=== PATIENT | male | born 1985 | race Caucasian/White ===

== ENCOUNTER 2016-05-30 18:33 | Emergency (ER) | payer BC ==
[2016-05-30] MEDS ORDERED: LORAZEPAM 1 MG TABLET ONE (19:05)
[2016-05-30] MEDS ORDERED: LORAZEPAM 1 MG TABLET PO ONE (19:30)
== END 2016-05-30 19:07 | disposition home or self-care (01) ==
DX: B35.4 Tinea corporis (principal); F32.9 Major depressive disorder, single episode, unspecified; F41.9 Anxiety disorder, unspecified
CPT/HCPCS: 99283; A4606; Z7610

== ENCOUNTER 2018-07-22 05:22 | Emergency (ER) | payer BC, MEDICAID ==
[~2018-07-22] VITALS: Ht 175.3 cm; Wt 72.6 kg
[2018-07-22 05:47] VITALS: BP 148/89
== END 2018-07-22 06:33 | disposition home or self-care (01) ==
LOC: ER 05:22
DX: F41.9 Anxiety disorder, unspecified (principal); F19.10 Other psychoactive substance abuse, uncomplicated; F32.9 Major depressive disorder, single episode, unspecified; F10.10 Alcohol abuse, uncomplicated; F14.90 Cocaine use, unspecified, uncomplicated; Y90.9 Presence of alcohol in blood, level not specified

== ENCOUNTER 2018-10-13 13:52 | Emergency (ER) | payer MEDICAID ==
[~2018-10-13] VITALS: Ht 172.7 cm; Wt 67.6 kg
--- NOTE | 2018-10-13 14:20 | NUR ---
PT PRESENTED TO THE ER WITH A C/O SI WITH A PLAN TO HANG HIMSELF. PT IS AA7O X4. PT IS EMOTIONAL AND STATED THAT IF HE DOES NOT GET HELP TODAY THAT'S IT, HE'S DONE. PT WAS IN [facility] A WEEK AGO AND STATED THAT HE WOULD LIKE TO GO TO REHAB AFTER HE IS ADMITTED FOR SI. PT CHANGED INTO A GOWN AND ALL BELONGINGS WERE REMOVED AND PLACED IN THE NURSE'S STATION. ALL BAGS WERE LABELED WITH THE PT'S LABEL. PT DID NOT WANT HIS WALLET PUT INTO THE SAFE. WALLET WAS PLACED IN A SEALED BAG AND PLACED INSIDE BELONGING BAG. PA IS AT THE BEDSIDE SPEAKING TO THE PT.
--- NOTE | 2018-10-13 14:21 | NUR ---
SECURITY IS ARRIVED AND PT WAS WANDED.
--- NOTE | 2018-10-13 14:27 | NUR ---
JACOB SUP. CALLED FOR SITTER.
--- NOTE | 2018-10-13 14:28 | NUR ---
SECURITY IS WITH THE PT IN ROOM 18 A SITTER.
[2018-10-13 15:03] LABS: BASOPHILS % (AUTO) 0.2 % (0.0-2.0); EOSINOPHILS % (AUTO) 1.9 % (0.0-6.0); HEMATOCRIT 37 % (39-51); HEMOGLOBIN 12.5 g/dL (13.5-17.5); LYMPHOCYTES % (AUTO) 14.6 % (20.0-44.0); MEAN CORPUSCULAR HGB CONC 34 g/dl (31.0-36.0); MEAN CORPUSCULAR VOLUME 91 fL (80-96); MONOCYTES # (AUTO) 0.4 /CMM (0.1-1.30); MONOCYTES % (AUTO) 6.1 % (2.0-12.0); NEUTROPHILS # (AUTO) 5.3 /CMM (1.8-8.9); NEUTROPHILS % (AUTO) 77.2 % (43.0-81.0); PLATELET COUNT (AUTO) 282 /CMM (150-450); RED BLOOD CELL COUNT(AUTO) 4.03 MIL/uL (4.5-6.0); WHITE BLOOD COUNT (AUTO) 6.9 K/uL (4.3-11.0)
[2018-10-13 15:08] LABS: CALCIUM, SERUM 8.6 mg/dL (8.5-10.1); CREATININE 1.3 mg/dL (0.6-1.3); POTASSIUM 3.9 mmol/L (3.5-5.1)
[2018-10-13 15:14] LABS: ALBUMIN 3.5 g/dL (3.4-5.0); BILIRUBIN,DIRECT 0.1 mg/dL (0.0-0.2); BILIRUBIN,TOTAL 0.5 mg/dL (0.2-1.0); SALICYLATE 3.7 mg/dL (2.8-20.0); TOTAL PROTEIN, SERUM 6.9 g/dL (6.4-8.2)
[2018-10-13 15:26] LABS: APPEARANCE,URINE Clear (CLEAR); BILIRUBIN,URINE Negative (NEGATIVE); BLOOD, URINE Negative Ery/uL (NEGATIVE); COLOR,URINE Yellow (YELLOW); KETONES,URINE Trace (NEGATIVE); LEUKOCYTE ESTERASE ,URINE Negative (NEGATIVE); NITRITE, URINE Negative (NEGATIVE); PROTEIN,URINE Negative (NEGATIVE); UGLUCOSE Negative (NEGATIVE); UROBILINOGEN,URINE 0.2 EU/dL (0.2)
[2018-10-13 15:30] LABS: BACTERIA,URINE None seen /HPF (None Seen); RBC,URINE 0-2 /HPF (0-2); SQUAMOUS EPITHELIAL CELL,UR Few /HPF (None Seen); WBC,URINE 0-2 /HPF (0-3)
--- NOTE | 2018-10-13 15:30 | NUR ---
PT REC'D A WARM BLANKET.
--- NOTE | 2018-10-13 15:45 | NUR ---
PT REC'D A FOOD TRAY.
--- NOTE | 2018-10-13 16:18 | NUR ---
SITTER ARRIVED AND SECURITY LEFT.
--- NOTE | 2018-10-13 16:31 | NUR ---
PER ART, CALL PINKY AT 5PM
[2018-10-13 16:39] VITALS: BP 116/67
--- NOTE | 2018-10-13 16:47 | NUR ---
PT WAS MOVED FROM ER 18 TO ER 14. PT AMBULATED WITH A SLIGHT LIMP. SITTER IS AT THE BEDSIDE.
--- NOTE | 2018-10-13 17:05 | NUR ---
CALLED YAMIL BAEZ, RE: PT EVAL. REPEAT ALCOHOL LEVEL ORDERED.
--- NOTE | 2018-10-13 18:17 | NUR ---
YAMIL CASTREJON, IS ARRIVED AND IS REVIEWING THE PT'S CHART.
--- NOTE | 2018-10-13 18:24 | NUR ---
YAMIL CASTREJON IS AT THE BEDSIDE.
--- NOTE | 2018-10-13 19:00 | NUR ---
JUVENTINO MONTALVO ARRIVED AND WILL BE THE NEW SITTER FOR THE PT.
--- NOTE | 2018-10-13 19:30 | NUR ---
PT REC'D A SANDWICH, JELLO, PUDDING, YOGURT, AND JUICE. PT WILL EAT LATER. PT WANTS TO SLEEP NOW.
--- NOTE | 2018-10-13 20:24 | NUR ---
TRANSFER INFO: [facility]ENNEY SOLORZANO UNIT 2,PATRICK JAIMES ACCEPTED, RN FOR REPORT [phone] [phone]
--- NOTE | 2018-10-13 21:56 | NUR ---
CALLING REPORT TO KENNEY BOB.
--- NOTE | 2018-10-13 22:15 | NUR ---
REPORT GIVEN TO TAMIE EMT. COPY OF THE ENTIRE CHART GIVEN TO EMT. PT'S BELONGINGS WERE GIVEN TO EMT. PT IS BEING TRASFERED OUT TO [facility]. VSS
== END 2018-10-13 22:40 ==
LOC: ER 13:52
DX: R45.851 Suicidal ideations (principal); F17.200 Nicotine dependence, unspecified, uncomplicated; Z98.890 Other specified postprocedural states
CPT/HCPCS: 36415; 80048-TC; 80076-TC; 80305; 81000-TC; 85025-TC; G0480

== ENCOUNTER 2020-05-16 07:40 | Emergency (ER) | payer MEDICAID ==
[~2020-05-16] VITALS: Ht 175.3 cm; Wt 72.6 kg
--- NOTE | 2020-05-16 07:40 | NUR ---
PT BIB SELF C/O SI "I WANT TO HANG MY SELF" PT IS AAOX4, NOT IN RESPIRATORY DISTRESS, V/S STABLE, KEPT RESTED AND COMFORTABLE. SITTER AT BEDSIDE.
--- NOTE | 2020-05-16 07:50 | NUR ---
URINE SPECIMEN COLLECTED AND SENT TO LAB.
--- NOTE | 2020-05-16 07:54 | NUR ---
SECURITY AT BEDSIDE FOR WANDING.
[2020-05-16 08:28] LABS: BASOPHILS % (AUTO) 0.4 % (0.0-2.0); EOSINOPHILS % (AUTO) 0.3 % (0.0-6.0); HEMATOCRIT 42 % (39-51); HEMOGLOBIN 14.3 g/dL (13.5-17.5); LYMPHOCYTES # (AUTO) 0.6 /CMM (0.8-4.8); LYMPHOCYTES % (AUTO) 9.6 % (20.0-44.0); MEAN CORPUSCULAR HGB CONC 34 g/dl (31.0-36.0); MEAN CORPUSCULAR VOLUME 87 fL (80-96); MONOCYTES # (AUTO) 0.1 /CMM (0.1-1.30); MONOCYTES % (AUTO) 2.5 % (2.0-12.0); NEUTROPHILS % (AUTO) 87.2 % (43.0-81.0); PLATELET COUNT (AUTO) 347 /CMM (150-450); RED BLOOD CELL COUNT(AUTO) 4.79 MIL/uL (4.5-6.0); WHITE BLOOD COUNT (AUTO) 5.7 K/uL (4.3-11.0)
[2020-05-16 08:36] LABS: CALCIUM, SERUM 9.4 mg/dL (8.5-10.1); CARBON DIOXIDE 29 mmol/L (21-32); CHLORIDE 99 mmol/L (98-107); GLUCOSE 105 mg/dL (74-106); POTASSIUM 3.6 mmol/L (3.5-5.1); SODIUM SERUM 137 mmol/L (136-145); UREA NITROGEN, BLOOD 9 mg/dL (7-18)
[2020-05-16 08:42] LABS: BILIRUBIN,URINE Negative (NEGATIVE); COLOR,URINE YELLOW (YELLOW); LEUKOCYTE ESTERASE ,URINE Negative (NEGATIVE); NITRITE, URINE Negative (NEGATIVE); PH,URINE 7.5 (5.0-8.0); PROTEIN,URINE Negative (NEGATIVE); UGLUCOSE Negative (NEGATIVE); UROBILINOGEN,URINE 0.2 EU/dL (0.2)
[2020-05-16 08:45] LABS: BACTERIA,URINE None seen /HPF (None Seen); RBC,URINE 0-2 /HPF (0-2); SQUAMOUS EPITHELIAL CELL,UR None Seen /HPF (None Seen); WBC,URINE 0-2 /HPF (0-3)
[2020-05-16 08:52] LABS: ALANINE AMINOTRANSFERASE 45 U/L (12-78); ALBUMIN 4.1 g/dL (3.4-5.0); ALCOHOL, BLOOD < 3 mg/dL (0-0); ALKALINE PHOSPHATASE 71 U/L (46-116); ASPARTATE AMINOTRANSFERASE 26 U/L (15-37); BILIRUBIN,DIRECT 0.1 mg/dL (0.0-0.2); BILIRUBIN,TOTAL 0.8 mg/dL (0.2-1.0); TOTAL PROTEIN, SERUM 8.4 g/dL (6.4-8.2)
[2020-05-16 08:53] LABS: ACETAMINOPHEN 0 ug/ml (10-30)
--- NOTE | 2020-05-16 10:20 | NUR ---
LAB CALLED COVID RESULT NEGATIVE (-) DOCTOR INFORMED.
--- NOTE | 2020-05-16 11:30 | NUR ---
SS CONSULT: SS Consult requested by ED staff for SI W/plan. The pt. is a 34-year old Male in the ED. SW met pt. at bedside and pt. was receptive to meeting with SW. Pt. appears unkempt with abrasion to the right side of his face. Pt stated, I fell on my face when using Fentanyl. SW explored pt.s drug use. Pt. stated he uses Fentanyl & Heroin. Pt. stated he drinks 1 pint of Vodka every day. Pt. is self-medicating to deal with loss & grief due to girlfriend recent some months ago. Per pt., he lives at [facility] [[address] [facility] [address] SW explored pt.s support system. Pt. stated his father, Steve Villanueva [phone] is involved. Per pt. he has been diagnosed with Anxiety & Depression in the past and is currently not on any medication to manage the symptoms. Pt. denies current HI & denies hallucinations.Pt. has fair insight & poor judgment. Per patient, he has been experiencing SI for the past week with a plan to OD on Fentanyl who he can buy from dealers. Patient stated he received GR benefits & EBT and is currently not working but has a steady income from [employer]. JADEN offered to refer pt. to a psychiatric hospital and receive treatment for Dual Diagnosis: Drug Use disorder & Depression, SI. Patient is agreeable. Plan: JADEN referred pt. to [facility] [[address] [place] [address] ] for inpatient psychiatric treatment. JADEN provided the following resources to this pt.: Substance Abuse resources provided included: [facility] Substance Abuse Self-Helpline (SAS) ; [facility] [address] [facility]. [place] [address] ; [facility] [place] [address] [place] [address] ; [facility] [address] [facility] [address] ; [place] [address] [facility] [address] ; [facility] [address] [facility] [phone] ; [facility] [address] [facility] [phone] ; [facility] Substance Abuse Helpline(SASH)-[facility] ; [facility] ; Cidar Sheldon [place]; [facility] [place]; Cri[facility]Help [place]; I-ADARP Inter Agency Drug Abuse Recovery [place]; [facility] [place]; [facility] [place]; [facility] Lu[facility]; [facility], [facility]. Kenan Max; Alcoholics Anonymous -SFV; As-Jokw-Juattai ; Marijuana Anonymous -SFV; Narcotics Anonymous www.na.org. Mental Health resources provided: [facility] [address] [place] [address] ; [facility] [address] [facility] [address], [place] [address] ; [facility] [address] [place] [address] ; [facility] [address] [place] [address]
--- NOTE | 2020-05-16 11:36 | NUR ---
CALLED SW FOR PT EVAL.
--- NOTE | 2020-05-16 12:26 | NUR ---
PER JADEN ARENAS, SENT REFERRAL FOR [facility]. WILL CALL US BACK FOR UPDATES
--- NOTE | 2020-05-16 13:37 | NUR ---
Chief Deputy Sheriff provided the pt with a list of substance abuse referrals and a copy of the referrals were placed in the pts chart.
--- NOTE | 2020-05-16 14:04 | NUR ---
PT ACCEPTED AT [facility] UNDER THE CARE OF DR. LOCK. CALL [phone] FOR REPORT
--- NOTE | 2020-05-16 14:10 | NUR ---
CALLED TRANSPORT [facility] ETA 1430 PER MENA
--- NOTE | 2020-05-16 14:23 | NUR ---
Report edith to fernie Hoffmann sup for alivia at the [facility]
--- NOTE | 2020-05-16 14:31 | NUR ---
[facility] at bedside for pt transport to [facility]. report given to TAMI Rodas. pt is in stable condition.
[2020-05-16 14:33] VITALS: BP 135/80
== END 2020-05-16 14:35 ==
LOC: ER 07:41
DX: R45.851 Suicidal ideations (principal); F11.10 Opioid abuse, uncomplicated; Z59.0 Homelessness; F17.200 Nicotine dependence, unspecified, uncomplicated; Z89.012 Acquired absence of left thumb; F32.9 Major depressive disorder, single episode, unspecified; F41.9 Anxiety disorder, unspecified; Z88.0 Allergy status to penicillin; Z20.822 Contact with and (suspected) exposure to COVID-19
CPT/HCPCS: 36415; 80048; 80076; 80299; 80307; 80320; 81001; 85025; 87426; 99285; C9803; G0480

== ENCOUNTER 2020-05-17 10:09 | Emergency (ER) | payer MEDICAID ==
[~2020-05-17] VITALS: Ht 172.7 cm; Wt 72.6 kg
--- NOTE | 2020-05-17 10:39 | NUR ---
"Was here yesterday for same thing Suicidal thoughts to OD on meds or hang self I was transfer to [facility] but they did NOT want to keep me", to ER bed 11, hooked to monitor, chnaged to hosp gown, warm blanklet provided, patient aao X 4. suicide precautions applied , sitter at bedside for safety. NAD noted. awaiting MD mcleod
--- NOTE | 2020-05-17 10:40 | NUR ---
Dr Mckenna at bedside
[2020-05-17 11:03] LABS: BASOPHILS % (AUTO) 0.3 % (0.0-2.0); HEMATOCRIT 39 % (39-51); LYMPHOCYTES # (AUTO) 0.8 /CMM (0.8-4.8); LYMPHOCYTES % (AUTO) 12.7 % (20.0-44.0); MEAN CORPUSCULAR HGB CONC 33 g/dl (31.0-36.0); MEAN CORPUSCULAR VOLUME 87 fL (80-96); MONOCYTES # (AUTO) 0.2 /CMM (0.1-1.30); MONOCYTES % (AUTO) 3.2 % (2.0-12.0); NEUTROPHILS % (AUTO) 83.8 % (43.0-81.0); PLATELET COUNT (AUTO) 343 /CMM (150-450); RED BLOOD CELL COUNT(AUTO) 4.49 MIL/uL (4.5-6.0)
[2020-05-17 11:10] LABS: CALCIUM, SERUM 9.8 mg/dL (8.5-10.1); CARBON DIOXIDE 28 mmol/L (21-32); CHLORIDE 101 mmol/L (98-107); CREATININE 1.2 mg/dL (0.6-1.3); GLUCOSE 137 mg/dL (74-106); POTASSIUM 3.2 mmol/L (3.5-5.1); SODIUM SERUM 139 mmol/L (136-145); UREA NITROGEN, BLOOD 15 mg/dL (7-18)
[2020-05-17 11:15] LABS: ALANINE AMINOTRANSFERASE 36 U/L (12-78); ALBUMIN 3.9 g/dL (3.4-5.0); ALCOHOL, BLOOD < 3 mg/dL (0-0); ALKALINE PHOSPHATASE 68 U/L (46-116); ASPARTATE AMINOTRANSFERASE 17 U/L (15-37); BILIRUBIN,DIRECT 0.1 mg/dL (0.0-0.2); BILIRUBIN,TOTAL 0.4 mg/dL (0.2-1.0)
[2020-05-17 11:16] LABS: ACETAMINOPHEN 0 ug/ml (10-30)
[2020-05-17 11:28] LABS: BILIRUBIN,URINE Negative (NEGATIVE); COLOR,URINE YELLOW (YELLOW); LEUKOCYTE ESTERASE ,URINE Negative (NEGATIVE); NITRITE, URINE Negative (NEGATIVE); PH,URINE 8.5 (5.0-8.0); PROTEIN,URINE Negative (NEGATIVE); UGLUCOSE Negative (NEGATIVE); UROBILINOGEN,URINE 0.2 EU/dL (0.2)
[2020-05-17 11:40] LABS: BACTERIA,URINE Rare /HPF (None Seen); RBC,URINE NONE SEEN /HPF (0-2); SQUAMOUS EPITHELIAL CELL,UR Rare /HPF (None Seen); WBC,URINE 0-2 /HPF (0-3)
--- NOTE | 2020-05-17 14:51 | NUR ---
SEEN BY JADEN NASCIMENTO, PATIENT HAS BEEN REFERRED TO [facility]. WILL CALL US FOR UPDATE
--- NOTE | 2020-05-17 15:03 | NUR ---
Social Service Consult: SW consult requested by ER staff for a 34 year old male for suicidal ideation. JADEN met with pt at ER bed 11 and conducted an assessment at 1450 pm. Pt made good eye contact during the assessment. Pt. alert and oriented x4 ( time, place, self, and situation). Pt appears to be in an anxious mood. Pt.'s speech is within normal limits. Pt is ungroomed, malodorous, and had proper attire (dirty). Pt is receptive during the assessment. Pt states is having suicidal ideation with a plan to "overdose on fentanyl". Pt denies of homicidal ideation. Pt states he is diagnosed with depression and anxiety. Pt states of having a support system (Father, Steve Villanueva, ). Pt expressed being unemployed and receives GR and food stamps. Pt expresses having hx of substance abuse (ETOH, opiates, marijuana). Pt ambulates with no walking assistance and DME. SW offers pt to a psychiatric hospital and receive treatments for drug use. Pt voluntarily agrees to psychiatric hospital. SW educate and gave pt with proper resources list to the pt. Mental Health resources provided: [facility] [address] [place], [place] [phone] ; [facility] [address] [facility] [address], [place] [address] ; [facility] [address] [facility] [place], [place] [phone] ; [facility] [place], [place] [phone] . Substance Abuse resources provided included: [facility] Substance Abuse Self-Help line (SASH) ; [facility]LP [address] [facility]. [place]. [place] [address] ; [facility] [address] [facility] [address] ; [facility] [address] [facility]. [facility] [address] ; [facility] [address] [facility] [address] ; [facility] [address] [place] [address] ; [facility] [address] [facility] [phone] ; [facility] Substance Abuse Help line (SAS)-[facility] ; [facility] ; Cidar [place]; [facility] [place]; [facility] [place]; I-ADARP Inter Agency Drug Abuse Recovery Rick Zhu; [facility] [place]; [facility] [place]; [facility] [place]; [facility] [facility]. [place]; Alcoholics Anonymous -SFV; Yf-Vtzf-Tvqkxbg ; Marijuana Anonymous -SFV; Narcotics Anonymous www.na.org. Pt is receptive towards resources and list given by the SW during the assessment. Plan: SW referred pt. to [facility] ([facility]) ([address] [place] [address]) ([phone] & [phone]) for psychiatric treatment. Inclined Railway Operator is available upon request. Addendum: 05/17/20 at 1523 by PILY STANLEY Social Service Consult: JADEN consult requested by ER staff for a 34 year old male for suicidal ideation. JADEN met with pt at ER bed 11 and conducted an assessment at 1450 pm. Pt made good eye contact during the assessment. Pt. alert and oriented x4 ( time, place, self, and situation). Pt appears to be in an anxious mood. Pt.'s speech is within normal limits. Pt is ungroomed, malodorous, and had proper attire (dirty). Pt is receptive during the assessment. Pt states is having suicidal ideation with a plan to "overdose on fentanyl". Pt denies of homicidal ideation. Pt states he is diagnosed with depression and anxiety. Pt states of having a support system (Father, Steve Villanueva, ). Pt expressed being unemployed and receives GR and food stamps. Pt expresses having hx of substance abuse (ETOH, opiates, marijuana). Pt ambulates with no walking assistance and DME. JADEN offers pt to a psychiatric hospital and receive treatments for drug use. Pt voluntarily agrees to psychiatric hospital. JADEN educate and gave pt with proper resources list to the pt. Mental Health resources provided: [facility] [address] [place] [address] ; [facility] [address] [facility] [address], [place] [address] ; [facility] [address] [place] [address] ; [facility] [place] [address] . Substance Abuse resources provided included: [facility] Substance Abuse Self-Help line (SASH) ; [facility] [address] [facility]. [place] [address] ; [facility] [address] [facility] [address] ; [facility] [address] [place]. [place] [phone] ; [facility] [address] [facility] [address] ; [facility] [address] [facility] [place] [address] ; [facility] [address] [facility] [phone] ; [facility] Substance Abuse Help line (SAS)-[facility] ; [facility] Family [facility] ; [facility] [place]; [facility] [place]; [facility] [place]; I-ADARP Inter Agency Drug Abuse Recovery [place]; [facility] [place]; Dundee Madison [place]; [facility] [place]; [facility], [facility]. [place]; Alcoholics Anonymous -SFV; Hi-Pgqm-Qaadyfn ; Marijuana Anonymous -SFV; Narcotics Anonymous www.na.org. Pt is receptive towards resources and list given by the SW during the assessment. Plan: SW referred pt. to [facility] ([facility]) (Julio- inside technical sales representative) ([address] [place] [address]) ([phone] & [phone]) for psychiatric treatment. Inclined Railway Operator is available upon request.
--- NOTE | 2020-05-17 15:26 | NUR ---
urine sample collected and sent to lab
--- NOTE | 2020-05-17 18:54 | NUR ---
REPORT GIVEN TO LEONEL SANTOS FOR LAMBERTO
--- NOTE | 2020-05-17 19:32 | NUR ---
FACESHEET AND CLINICAL FAXED TO [facility] INTAKE FOR VOLUNTARY PSYCH ADMISSION.
--- NOTE | 2020-05-17 20:31 | NUR ---
PT ASLEEP, VSS. RESTING COMFORTABLY.
--- NOTE | 2020-05-18 00:17 | NUR ---
PT AMBULATED TO THE RESTROOM
--- NOTE | 2020-05-18 00:39 | NUR ---
PROVIDED WITH FOOD AND WATER.
--- NOTE | 2020-05-18 03:14 | NUR ---
PT RESTING COMFORTABLY. AWAKE IN BED.
--- NOTE | 2020-05-18 06:40 | NUR ---
PT AMBULATED TO THE RESTROOM
--- NOTE | 2020-05-18 06:42 | NUR ---
TRANSFER INFORMATION: PT ACCEPTED AT [facility] ACCEPTING MD NGUYEN/CAMPBELL PHONE# FOR REPORT EXT [phone] OR [phone] PLEASE CALL FOR REPORT AT 8AM.
--- NOTE | 2020-05-18 09:11 | NUR ---
CALLED FOR REPORT, SHEY DOHERTY WILL CALL ME BACK.
--- NOTE | 2020-05-18 09:18 | NUR ---
REPORT GIVEN TO BESSY SANTOS AT [facility].
--- NOTE | 2020-05-18 09:42 | NUR ---
[facility] ENCARNACION CALLED. ETA 30-45 MINS. SPOKE TO ALMA.
[2020-05-18 10:40] VITALS: BP 121/71
--- NOTE | 2020-05-18 10:40 | NUR ---
PATIENT A/OX4, BREATHING EVEN AND UNLABORED, NO SOB NOTED. REPORT GIVEN TO ALIGNMENT TECHNICIAN. TRANSFERRED TO [facility].
== END 2020-05-18 10:41 ==
LOC: ER 11:12
DX: R45.851 Suicidal ideations (principal); F32.9 Major depressive disorder, single episode, unspecified; F41.9 Anxiety disorder, unspecified; Z88.0 Allergy status to penicillin; Z20.822 Contact with and (suspected) exposure to COVID-19; Z59.0 Homelessness; F17.200 Nicotine dependence, unspecified, uncomplicated
CPT/HCPCS: 36415; 80048; 80076; 80299; 80307; 80320; 81001; 85025; 87426; 99285; C9803; G0480

== ENCOUNTER 2020-08-19 18:21 | Emergency (ER) | payer MEDICAID ==
[~2020-08-19] VITALS: Ht 175.3 cm; Wt 68.0 kg
--- NOTE | 2020-08-19 18:28 | NUR ---
dr leonard at bedside for eval.
--- NOTE | 2020-08-19 18:30 | NUR ---
pt self presents to ed. ambulatory w/ steady gait. pt is c/o SI. states +plan to od on fentanyl. denies hi. stable vitals. roomed. awaiting md mcleod.
[2020-08-19 19:22] LABS: BILIRUBIN,URINE NEGATIVE (NEGATIVE); COLOR,URINE YELLOW (YELLOW); LEUKOCYTE ESTERASE ,URINE NEGATIVE (NEGATIVE); NITRITE, URINE NEGATIVE (NEGATIVE); PROTEIN,URINE NEGATIVE (NEGATIVE); UGLUCOSE NEGATIVE (NEGATIVE); UROBILINOGEN,URINE 0.2 EU/dL (0.2)
[2020-08-19 19:43] LABS: ALANINE AMINOTRANSFERASE 34 U/L (12-78); ALBUMIN 3.2 g/dL (3.4-5.0); ALCOHOL, BLOOD < 3 mg/dL (0-0); ALKALINE PHOSPHATASE 71 U/L (46-116); ASPARTATE AMINOTRANSFERASE 36 U/L (15-37); BILIRUBIN,DIRECT 0.1 mg/dL (0.0-0.2); BILIRUBIN,TOTAL 0.4 mg/dL (0.2-1.0); CALCIUM, SERUM 9.1 mg/dL (8.5-10.1); CARBON DIOXIDE 27 mmol/L (21-32); CHLORIDE 101 mmol/L (98-107); CREATININE 0.9 mg/dL (0.6-1.3); GLUCOSE 126 mg/dL (74-106); POTASSIUM 3.2 mmol/L (3.5-5.1); SODIUM SERUM 137 mmol/L (136-145); TOTAL PROTEIN, SERUM 7.4 g/dL (6.4-8.2); UREA NITROGEN, BLOOD 9 mg/dL (7-18)
[2020-08-19 19:51] LABS: ACETAMINOPHEN 0 ug/ml (10-30)
[2020-08-19] MEDS ORDERED: POTASSIUM CHLORIDE 20 MEQ TAB.PRT.SR PO ONE ×2 (20:00→20:45)
[2020-08-19 20:09] LABS: BASOPHILS % (AUTO) 0.3 % (0.0-2.0); EOSINOPHILS % (AUTO) 0.4 % (0.0-6.0); HEMATOCRIT 31 % (39-51); HEMOGLOBIN 10.3 g/dL (13.5-17.5); LYMPHOCYTES # (AUTO) 1.1 /CMM (0.8-4.8); LYMPHOCYTES % (AUTO) 13.1 % (20.0-44.0); MEAN CORPUSCULAR HGB CONC 33 g/dl (31.0-36.0); MEAN CORPUSCULAR VOLUME 86 fL (80-96); MONOCYTES # (AUTO) 0.4 /CMM (0.1-1.30); MONOCYTES % (AUTO) 5.1 % (2.0-12.0); NEUTROPHILS # (AUTO) 6.5 /CMM (1.8-8.9); NEUTROPHILS % (AUTO) 81.1 % (43.0-81.0); PLATELET COUNT (AUTO) 270 /CMM (150-450); RED BLOOD CELL COUNT(AUTO) 3.61 MIL/uL (4.5-6.0)
--- NOTE | 2020-08-19 20:20 | NUR ---
RAPID COVID19 - NEGATIVE
--- NOTE | 2020-08-19 23:22 | NUR ---
patient accepted at [facility] [phone] Bro
--- NOTE | 2020-08-19 23:38 | NUR ---
[facility] ETA [facility] 45 MINS.
--- NOTE | 2020-08-19 23:46 | NUR ---
report given to barb at [facility]. pt awaitng transport ambulance.
[2020-08-20 00:34] VITALS: BP 135/71
== END 2020-08-20 00:36 ==
LOC: ER 18:21
DX: R45.851 Suicidal ideations (principal); F19.10 Other psychoactive substance abuse, uncomplicated; E87.6 Hypokalemia; F41.9 Anxiety disorder, unspecified; F32.9 Major depressive disorder, single episode, unspecified; Z89.012 Acquired absence of left thumb; Z88.0 Allergy status to penicillin; Z20.822 Contact with and (suspected) exposure to COVID-19
CPT/HCPCS: 36415; 80048; 80076; 80299; 80307; 80320; 81003; 85025; 87426; 99285; C9803; G0480